=== PATIENT | male | born 1990 | race Caucasian/White ===

== ENCOUNTER 2024-08-12 04:49 | Emergency (ER) | payer MEDICAID, SELFPAY ==
[2024-08-12 04:50] VITALS: BMI 37.3
[2024-08-12 04:58] VITALS: BP 152/83; PULSE 111; RESP 19; TEMP 36.9; O2SAT 96
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
[2024-08-12] MEDS: KETOROLAC INJ 60 MG/2 ML VIAL 30 MG IM (05:16)
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
== END 2024-08-12 07:43 | disposition home or self-care (01) ==
PROVIDERS: Emergency Provider Emergency Medicine; PCP Nurse Practitioner Family
DX: S20.211A Contusion of right front wall of thorax, initial encounter (principal); W50.1XXA Accidental kick by another person, initial encounter; Y93.89 Activity, other specified
CPT/HCPCS: 71101; 96372; 99283; J1885